=== PATIENT | male | born 1935 ===

== ENCOUNTER 2017-11-27 06:02 | Day surgery (SDC) | payer OTHER ==
[~2017-11-27 06:02] MED LIST: ACID CONTROLLER20 MG; AVAPRO300 MG PO; CLOPIDOGREL BIS75 MG PO; DEMADEX10 MG PO; FISH OIL 1,0001 EAC4 PO; GABAPENTIN300 MG PO; HYDRALAZINE HC100 MG PO; LUMIGAN2.5 M1 OP; METHAZOLAMIDE25 MG PO; NORVASC10 MG PO; SIMBRINZA 1%-0.28 ML OP; ZOCOR20 MG PO
[2017-11-27] MEDS ORDERED: RECTICARE30 GM TOP (10:10)
[2017-11-27] MEDS ORDERED: PERCOCET 5-3251 EACH PO (10:10)
== END 2017-11-27 15:45 | disposition home or self-care (01) ==
LOC: CIR.AMB 06:02
DX: K64.3 Fourth degree hemorrhoids (principal); K62.5 Hemorrhage of anus and rectum; K62.89 Other specified diseases of anus and rectum